=== PATIENT | male | born 1950 | race Caucasian/White ===

== ENCOUNTER 2017-06-12 17:36 | Emergency (ER) | payer MEDICARE ==
[2017-06-12 18:08] LABS: Basophils % (Auto) 0.7 % (0.0-1.8); Hematocrit 39.9 % (35.5-45.6); Hemoglobin 13.5 gm/dl (11.8-15.2); Lymphocytes # (Auto) 1.1 K/mm3 (1.2-5.4); Lymphocytes % (Auto) 25.2 % (13.4-35.0); Mean Corpuscular HGB Conc 34 % (32-34); Mean Corpuscular Hemoglobin 31 pg (28-32); Mean Corpuscular Volume 92 fl (84-94); Monocytes # (Auto) 0.3 K/mm3 (0.0-0.8); Monocytes % (Auto) 7.2 % (0.0-7.3); Platelet Count 131 K/mm3 (140-440); Red Blood Count 4.33 M/mm3 (3.65-5.03); Red Cell Distribution Width 13.1 % (13.2-15.2)
[2017-06-12 18:27] LABS: BUN/Creatinine Ratio 17; Blood Urea Nitrogen 12 mg/dL (9-20); Calcium 8.4 mg/dL (8.4-10.2); Hemolysis Index 11
[2017-06-12] MEDS ORDERED: DUONEB *Not for PRN Use IH ONE (20:53)
[2017-06-12] MEDS ORDERED: MOTRIN PO ONE (20:53)
[2017-06-12] MEDS ORDERED: XYLOCAINE 1% MPF 5 mL INFILTRATI ONE (20:54)
[2017-06-12] MEDS ORDERED: ROCEPHIN IM ONE (20:54)
--- NOTE | 2017-06-12 20:57 | Emergency Department Report ---
Minor Respiratory - HPI Chief Complaint: Upper Respiratory Infection Stated Complaint: FLU LIKE SYMPTOMS Time Seen by Provider: 06/12/17 20:53 Duration: 3 Days Pain Location: Chest Severity: moderate Minor Respiratory: Yes Sore Throat, Yes Able to Tolerate Fluids, Yes Cough, Yes Fever, No Rhinorrhea, No Ear Pain, No Sick Contacts, No Hemoptysis, No Chest Pain, No Shortness of Breath ED Review of Systems ROS: Stated complaint: FLU LIKE SYMPTOMS Other details as noted in HPI Comment: All other systems reviewed and negative Constitutional: fever. denies: chills Eyes: denies: eye pain ENT: denies: ear pain, dental pain, hearing loss, epistaxis Respiratory: cough, wheezing Cardiovascular: denies: chest pain Endocrine: no symptoms reported ED Past Medical Hx - Past Medical History Hx Hypertension: No Hx Diabetes: Yes - Surgical History Past Surgical History?: No - Social History Smoking Status: Never Smoker Substance Use Type: None - Medications Home Medications: Home Medications Medication Instructions Recorded Confirmed Last Taken Type Benzonatate [Tessalon Perles] 100 mg PO Q12H PRN #20 capsule 06/12/17 Unknown Rx Cephalexin [Keflex] 500 mg PO Q12HR #20 cap 06/12/17 Unknown Rx Fluticasone [Flonase] 1 spray NS QDAY #1 bottle 06/12/17 Unknown Rx predniSONE [Deltasone] 20 mg PO DAILY #4 tablet 06/12/17 Unknown Rx Minor Respiratory Exam - Exam General: Vital signs noted. No distress. Alert and acting appropriately. HEENT: Yes Pharyngeal Erythema, Yes Moist Mucous Membranes, Yes Frontal Tenderness, Yes Maxillary Tenderness, No Pharyngeal Exudates, No Rhinorrhea, No Conjuctival Injection Ear: Both TM Erythema, Neither TM Bulge, Neither EAC Pain, Neither EAC Discharge Neck: Yes Supple, No Adenopathy Lungs: Yes Good Air Exchange, Yes Wheezes, Yes Ronchi, Yes Cough, No Stridor, No Labored Respirations, No Retractions, No Use of Accessory Muscles, No Other Abnormal Lung Sounds Heart: Yes Regular, No Murmur Abdomen: Yes Normal Bowel Sounds, No Tenderness, No Peritoneal Signs Skin: No Rash, No Edema Neurologic: Alert and oriented, no deficits. Musculoskeletal: Unremarkable. ED Course Vital Signs 06/12/17 17:43 Temperature 100.4 F H Pulse Rate 93 H Respiratory 16 Rate Blood Pressure 152/74 O2 Sat by Pulse 97 Oximetry - Reevaluation(s) Reevaluation #1: 06/12/17 21:09 Patient is a 67-year-old male. He presents with his son who is translating for him. He presents with a one-week history of cough cold and congestion. Patient states that he felt like he has had the flu. Patient is diabetic and on diabetic medicines. Nonfasting blood sugar on labs is approximately 112. Patient is non-ill appearing. Has a mild fever. Nontoxic looking. Denies purulent sputum. Is compliant with home medication regimen. No underlying lung disease or pathology. Patient denies any chest pain or shortness of breath. Flu swab was negative for flu AB. Labs were noted. No leukocytosis. Chest x- ray noted. Patient has mild bilateral wheezing of her bilateral lungs. Rhonchi with cough. Patient is taking by mouth. He is ambulatory in the emergency room. Respiratory treatment and medicated. Patient and family educated about a possible increase in blood sugar given the use of steroids for her oncologist. Patient will be DC'd to home with discharge planning care and return instructions. He will follow up with primary care on Wednesday. ED Medical Decision Making - Lab Data Result diagrams: 06/12/17 17:55 06/12/17 17:55 - Radiology Data Radiology results: report reviewed, image reviewed - Medical Decision Making see note - Differential Diagnosis ro pna Critical care attestation.: If time is entered above; I have spent that time in minutes in the direct care of this critically ill patient, excluding procedure time. ED Disposition Clinical Impression: Diabetes, URTI (acute upper respiratory infection), Cough, Fever Disposition: DC-01 TO HOME OR SELFCARE Is pt being admited?: No Does the pt Need Aspirin: No Condition: Stable Instructions: Diabetes Mellitus Type 2 in Adults (ED), Acute Bronchitis (ED), Acute Cough (ED) Additional Instructions: Rest. Motrin or Tylenol by mouth [id number] for pain or fever Medications as ordered today. Follow your blood sugar at home for maybe elevated given her acute illness. Diabetic diet Follow-up with your primary care on Wednesday or Wednesday to ensure that responding to antibiotics. Good hand washing Return to emergency room for a fever greater than 100.5 that does not come down with Motrin and Tylenol; or other signs and symptoms of worsening upper respiratory tract infection such as shortness of breath or chest pain. Prescriptions: Benzonatate [Tessalon Perles] 100 mg PO Q12H PRN #20 capsule PRN Reason: Cough Cephalexin [Keflex] 500 mg PO Q12HR #20 cap Fluticasone [Flonase] 1 spray NS QDAY #1 bottle predniSONE [Deltasone] 20 mg PO DAILY #4 tablet Referrals: PEBBLES MONAE MD [Primary Care Provider] - 3-5 Days MELINDA MARIE MD [Staff Physician] - 3-5 Days Time of Disposition: 20:58
--- NOTE | 2017-06-12 21:32 | XRay Report ---
FINAL REPORT PROCEDURE: Chest. TECHNIQUE: PA and lateral views. HISTORY: Cough. COMPARISON: No prior studies are available for comparison. FINDINGS: The heart and mediastinum appear normal. There is mild tortuosity of the thoracic aorta. The lungs are clear and well expanded. There are no pleural effusions. The soft tissues and regional skeleton are unremarkable. IMPRESSION: No evidence of acute disease.
[2017-06-12 22:07] VITALS: BP 143/64
== END 2017-06-12 22:07 | disposition home or self-care (01) ==
LOC: ED 17:36
DX: J06.9 Acute upper respiratory infection, unspecified (principal); R05 Cough; R50.9 Fever, unspecified; E11.9 Type 2 diabetes mellitus without complications
CPT/HCPCS: 36415; 71046; 80048; 85025; 87400; 94640; 96372; 99284; J0696; J2930